=== PATIENT | female | born 1945 | race American Indian/Alaskan Native ===

== ENCOUNTER 2019-09-17 06:05 | Day surgery (SDC) | payer MEDICARE ==
[2019-09-13 11:28] LABS: Hematocrit 43.6 % (30.3-42.9); Hemoglobin 14.2 gm/dl (10.1-14.3); Mean Corpuscular HGB Conc 33 % (30-34); Mean Corpuscular Volume 89 fl (79-97); Red Cell Distribution Width 14.5 % (13.2-15.2)
[2019-09-13 11:43] LABS: Alanine Aminotransferase 21 units/L (7-56); BUN/Creatinine Ratio 15; Blood Urea Nitrogen 12 mg/dL (7-17); Calcium 9.5 mg/dL (8.4-10.2); Hemolysis Index 4
[2019-09-13 12:17] LABS: Platelet Count 108 K/mm3 (140-440)
[~2019-09-17 06:05] MED LIST: LACTATED RINGERS 1,000 ML IV SCH; ceFAZolin/STERILE WATER 2 GM/20 ML SYRINGE IV NR
[2019-09-17] MEDS ORDERED: ONDANSETRON 4 MG/2 ML INJ IV PRN (07:21)
[2019-09-17] MEDS ORDERED: fentaNYL 100 MCG/2 ML INJ IV PRN (07:21)
--- NOTE | 2019-09-17 07:21 | Anesthesia Day of Surgery ---
Anesthesia Day of Surgery - Day of Surgery Patient Examined: Yes Patient H&P Reviewed: Yes Patient is NPO: Yes
--- NOTE | 2019-09-17 07:21 | Anesthesia Consultation ---
Anesthesia Consult and Med Hx Date of service: 09/17/19 - Airway Anesthetic Teeth Evaluation: Dentures (upper and lower) ROM Head & Neck: Adequate Mental/Hyoid Distance: Adequate Mallampati Class: Class II Intubation Access Assessment: Probably Good - Pulmonary Exam CTA: Yes - Cardiac Exam Cardiac Exam: RRR - Pre-Operative Health Status ASA Pre-Surgery Classification: ASA3 Proposed Anesthetic Plan: General - Pulmonary Hx Smoking: No Hx Respiratory Symptoms: No COPD: No Hx Sleep Apnea: No (NILDA PRE SCREEN LOW RISK.) - Cardiovascular System Hx Hypertension: Yes (took losartan this morning) Hx Coronary Artery Disease: Yes Hx Heart Attack/AMI: No Hx Percutaneous Transluminal Coronary Angioplasty (PTCA): Yes (x2 placed 2014; last dose ASA 7 days ago) Hx Cardia Arrhythmia: No - Central Nervous System Hx Neuromuscular Disorder: No CVA: No - Gastrointestinal Hx Gastroesophageal Reflux Disease: No - Endocrine Hx Renal Disease: No Hx Liver Disease: No Hx Insulin Dependent Diabetes: No Hx Non-Insulin Dependent Diabetes: No Hx Thyroid Disease: No - Hematic Hx Anemia: No - Other Systems Hx Cancer: Yes (bladder ca) - Additional Comments Anesthesia Medical History Comments: No hx anesthetic complications.
[2019-09-17] MEDS ORDERED: dexAMETHasone 20 MG/5 ML VIAL ONE (07:23)
[2019-09-17] MEDS ORDERED: LIDOCAINE MPF (2%) 20 MG/1 ML VIAL 5 ML ONE (07:23)
[2019-09-17] MEDS ORDERED: propofoL 200 MG/20 ML VIAL IV ONE (07:24)
[2019-09-17] MEDS ORDERED: fentaNYL 100 MCG/2 ML INJ ONE (07:24)
[2019-09-17] MEDS ORDERED: WATER FOR IRRIG STERILE 2000 ML IR ONE (07:58)
[2019-09-17] MEDS ORDERED: WATER FOR IRRIG STERILE 1,000 ML BOTTLE IR ONE (07:58)
[2019-09-17] MEDS ORDERED: IOHEXOL 300 MG/ML 50ML IV ONE (07:59)
[2019-09-17] MEDS ORDERED: PHENYLEPHRINE/NS 1,000 MCG/10 ML SYRINGE (OR USE) IV ONE (08:13)
--- NOTE | 2019-09-17 08:42 | Short Stay Summary ---
Short Stay Documentation Date of service: 09/17/19 - History H&P: obtained from office - Allergies and Medications Current Medications: Allergies codeine Adverse Reaction (Intermediate, Verified 09/10/19 12:50) Nausea Home Medications Medication Instructions Recorded Confirmed Last Taken Type AtorvaSTATin 40 mg PO DAILY 09/10/19 09/10/19 Unknown History C-1000 500 mg PO DAILY 09/10/19 09/10/19 Unknown History Losartan 50 mg PO DAILY 09/10/19 09/10/19 Unknown History Active Medications Cefazolin Sodium (Ancef/Sterile Water 2 Gm/20 Ml) 2 gm IV PREOP NR Stop: 09/17/19 23:59 Fentanyl (Sublimaze) 50 mcg IV Q5MIN PRN PRN Reason: Pain , Severe (7-10) Stop: 09/17/19 23:00 Lactated Ringer's (Lactated Ringers) 1,000 mls @ 100 mls/hr IV DIRECT ALDA Stop: 09/17/19 23:59 Ondansetron HCl (Zofran) 4 mg IV ONCE PRN PRN Reason: Nausea And Vomiting Stop: 09/17/19 20:00 - Brief post op/procedure progress note Date of procedure: 09/17/19 Pre-op diagnosis: bladder tumor Post-op diagnosis: same Procedure: cysto, rpg, bladder bx x 3 (trigone, posterior, posteria left lat wall) & fulgeration Anesthesia: GETA Surgeon: DARIEL BARGER Pathology: list (bladder bx) Specimen disposition: to lab Condition: stable - Hospital course Hospital course: ultram, macrobid, pyridium on chart - Disposition Condition at discharge: Stable Disposition: DC- TO HOME OR SELFCARE Short Stay Discharge Plan Follow up with: LEONOR COATES MD [Primary Care Provider] - 7 Days
--- NOTE | 2019-09-17 09:17 | Operative Report ---
PREOPERATIVE DIAGNOSIS: Bladder tumor. POSTOPERATIVE DIAGNOSIS: Bladder tumor. PROCEDURE: Cystoscopy, bladder biopsy x 3, fulguration of trigone, fulguration of base x 3. SURGEON: Joaquim Cross M.D. ANESTHESIA: General. ESTIMATED BLOOD LOSS: Minimal. FLUIDS: Crystalloid. COMPLICATIONS: No complications. INDICATIONS: This patient is a 74-year-old female with long history of superficial bladder tumors dating back to 2007. She has been under surveillance cystoscopy. 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 No muscle. Similar finding was noted on 07/13/2018. Due to its recurrent nature, she presents now for multiple biopsies and fulguration. Last surveillance cystoscopy revealed a small area, posterior bladder wall. She has received BCG in 2019. DESCRIPTION OF PROCEDURE: The patient was taken to the operative suite, placed in a supine position, after adequate general anesthesia, placed in a dorsal lithotomy position, prepped and draped in a sterile fashion. Pancystourethroscopy was performed with a 22-Turkish Storz cystoscope. Bilateral retrograde pyelograms were obtained with an 8-Turkish Fentress catheter and 8 mL of contrast. No filling defects or obstruction. Surveillance of the bladder trigone had areas of what appeared to be trigonitis. This area was biopsied, posterior bladder wall revealed an area of erythema that was noted on surveillance cystoscopy. This area was biopsied as well as an area posterior lateral (left) at a previous resection site. All areas were fulgurated with a 5 mm rim of normal tissue. Adequate hemostasis was achieved. She was extubated and taken to recovery room in stable condition. She will go home on Macrobid, nystatin and [place]. JOB# [id number] [facility], [place]/[facility]
[2019-09-17 10:16] VITALS: BP 140/83
--- NOTE | 2019-09-17 14:26 | Post Anesthesia Evaluation ---
- Post Anesthesia Evaluation Patient Participated: Yes Airway Patent: Yes Stable Respiratory Function: Yes Nausea/Vomiting: No Temp > 96.8F: Yes Pain Manageable: Yes Adequeate Hydration: Yes Anesthesia Complications: No
--- NOTE | 2019-09-17 15:33 | Fluoroscopy Report ---
INTRAOPERATIVE FLUOROSCOPY: RETROGRADE URETEROGRAM INDICATION / CLINICAL INFORMATION: BLADDER TUMOR. TECHNIQUE: Intraoperative spot images were obtained during the procedure. FINDINGS: For intraoperative spot images were obtained. Initial images the technician support engineer image. Subsequent images show injection of contrast into both ureters. No filling defect is seen in the left ureter. There is a que stionable tiny filling defect in the distal aspect of the right ureter single image of this area pres ented. This may be artifactual or represent an air bubble. IMPRESSION: There is a apparent very small filling defect in the distal most aspect of the right uret er this may be artifactual or represent air bubble. This area may have been better evaluated during r eal-time fluoroscopy. Fluoroscopy Time: 6 seconds. Fluoroscopy Images: 4. Signer Name: Aftab Brady MD Signed: 09/17/2019 3:29 PM Workstation Name: [id number]
== END 2019-09-17 06:06 | disposition home or self-care (01) ==
LOC: OR 06:05
PROVIDERS: ATTEND Urology
DX: C67.2 Malignant neoplasm of lateral wall of bladder (principal); N30.30 Trigonitis without hematuria; C67.4 Malignant neoplasm of posterior wall of bladder; Z11.59 Encounter for screening for other viral diseases; E78.00 Pure hypercholesterolemia, unspecified; I25.10 Atherosclerotic heart disease of native coronary artery without angina pectoris; Z79.899 Other long term (current) drug therapy; Z98.41 Cataract extraction status, right eye; Z98.42 Cataract extraction status, left eye; Z90.49 Acquired absence of other specified parts of digestive tract; Z88.5 Allergy status to narcotic agent; Z90.710 Acquired absence of both cervix and uterus; Z98.891 History of uterine scar from previous surgery; Z87.440 Personal history of urinary (tract) infections; Z98.890 Other specified postprocedural states
CPT/HCPCS: 36415; 52224; 74420; 80053; 85027; 88305; A4217; J0690; J1100; J2370; J2405; J2704; J3010; J7120; Q9967; U0003